=== PATIENT | male | born 1955 | race Caucasian/White ===

== ENCOUNTER 2024-12-01 12:11 | Emergency (ER) | payer BC, MEDICAID ==
[~2024-12-01] VITALS: Ht 170.2 cm; Wt 88.0 kg
[2024-12-01 12:18] VITALS: TEMP 97.8
[2024-12-01 12:54] LABS: BASOPHILS % (AUTO) 0.5 % (0-1); EOSINOPHILS # (AUTO) 0.3 X10'3 (0-0.9); EOSINOPHILS % (AUTO) 3.8 % (0-6); HEMATOCRIT 40.2 % (42.0-52.0); HEMOGLOBIN 13.6 g/dl (14.0-17.9); LYMPHOCYTES # (AUTO) 1.5 X10'3 (1.1-4.8); LYMPHOCYTES % (AUTO) 20.9 % (21-51); MEAN CORPUSCULAR HGB CONC 33.8 g/dL (33.0-36.5); MEAN PLATELET VOLUME 7.3 FL (7.4-10.4); MONOCYTES # (AUTO) 0.8 X10'3 (0-0.9); MONOCYTES % (AUTO) 11.1 % (2-12); NEUTROPHILS # (AUTO) 4.4 X10'3 (1.8-7.7); NEUTROPHILS % (AUTO) 63.7 % (42-75); PLATELET COUNT 239 X10'3 (140-440); RED BLOOD COUNT 4.68 X10'6 (4.70-6.10)
[2024-12-01 13:08] LABS: ALANINE AMINOTRANSFERASE 35 U/L (12-78); ALBUMIN 2.8 G/DL (3.4-5.0); ALBUMIN/GLOBULIN RATIO 0.8 (1.1-1.5); ALKALINE PHOSPHATASE 73 IU/L (46-116); ANION GAP 5 (8-16); ASPARTATE AMINO TRANSFERASE 21 U/L (10-37); BILIRUBIN,TOTAL 0.4 MG/DL (0.1-1.0); BLOOD UREA NITROGEN 21 MG/DL (7-18); BUN/CREATININE RATIO 17.2 (10.0-20.0); CALCIUM 8.5 MG/DL (8.5-10.1); CHLORIDE 112 MMOL/L (99-107); CREATININE 1.22 MG/DL (0.60-1.10); GLUCOSE 107 MG/DL (70-104); POTASSIUM 3.3 MMOL/L (3.5-5.1); SODIUM 145 MMOL/L (135-145); TOTAL CARBON DIOXIDE 28.1 MMOL/L (24-32); TOTAL PROTEIN 6.3 G/DL (6.4-8.2); eCRCL 53 ML/MIN; eGFR 59 ML/MIN
[2024-12-01 13:16] LABS: PRO BRAIN NATRIURETIC PEPTIDE 2220 PG/ML (0-125)
[2024-12-01 16:06] VITALS: BP 148/84; PULSE 82; RESP 16; O2SAT 98
[2024-12-01] MEDS: furosemide 20MG tablet PO ONE (16:10)
[2024-12-01] MEDS ORDERED: FURO-149 PO (16:21)
[2024-12-01] MEDS ORDERED: POTA-192 PO (16:23)
== END 2024-12-01 16:41 | disposition home or self-care (01) ==
LOC: ER 12:11
DX: R60.0 Localized edema (principal); I11.0 Hypertensive heart disease with heart failure; I50.9 Heart failure, unspecified
CPT/HCPCS: 36415; 71045; 80053; 83880; 84484; 85025; 93005; 99285

== ENCOUNTER 2024-12-15 13:27 | Emergency (ER) | payer BC, MEDICAID ==
[~2024-12-15] VITALS: Ht 175.3 cm; Wt 81.0 kg
[~2024-12-15 13:27] MED LIST: FURO-149 PO
[2024-12-15 14:04] VITALS: TEMP 97.4
[2024-12-15 14:15] LABS: BILIRUBIN,URINE NEGATIVE (Neg); CLARITY,URINE SLIGHTLY CLOUDY (Clear); COLOR,URINE YELLOW (Yellow); GLUCOSE, URINE NEGATIVE (Neg); KETONES,URINE NEGATIVE (Neg); LEUKOCYTE ESTERASE ,URINE MODERATE (Neg); NITRITES, URINE POSITIVE (Neg); OCCULT BLOOD,URINE TRACE-INTACT (Neg); PROTEIN,URINE TRACE mg/dl (Neg); UROBILINOGEN,URINE 0.2 E.U/dL (0.2-1.0)
[2024-12-15 14:16] LABS: UA COLLECTION TYPE CLN CATCH MIDSTREAM
[2024-12-15 14:28] LABS: BACTERIA,URINE 3+ /HPF (Neg); RBC,URINE 0-2 /HPF (0-2); SQUAMOUS EPITHELIAL CELL,UR FEW /LPF (FEW); WBC,URINE TNTC /HPF (0-4)
[2024-12-15 14:29] LABS: AMORPHOUS URATES 3+
[2024-12-15 14:32] LABS: BASOPHILS % (AUTO) 0.6 % (0-1); EOSINOPHILS # (AUTO) 0.2 X10'3 (0-0.9); EOSINOPHILS % (AUTO) 1.8 % (0-6); HEMATOCRIT 44.6 % (42.0-52.0); HEMOGLOBIN 15.2 g/dl (14.0-17.9); LYMPHOCYTES # (AUTO) 1.9 X10'3 (1.1-4.8); LYMPHOCYTES % (AUTO) 22.8 % (21-51); MEAN CORPUSCULAR HEMOGLOBIN 28.9 PG (27.0-31.0); MEAN CORPUSCULAR VOLUME 84.9 FL (78-98); MEAN PLATELET VOLUME 6.6 FL (7.4-10.4); MONOCYTES # (AUTO) 0.8 X10'3 (0-0.9); MONOCYTES % (AUTO) 8.9 % (2-12); NEUTROPHILS # (AUTO) 5.6 X10'3 (1.8-7.7); NEUTROPHILS % (AUTO) 65.9 % (42-75); PLATELET COUNT 261 X10'3 (140-440); RED BLOOD COUNT 5.26 X10'6 (4.70-6.10); RED CELL DISTRIBUTION WIDTH 15.1 % (11.5-14.5); WHITE BLOOD COUNT 8.5 X10'3 (4.5-11.0)
[2024-12-15 14:53] LABS: ALANINE AMINOTRANSFERASE 35 U/L (12-78); ALBUMIN 3.4 G/DL (3.4-5.0); ALBUMIN/GLOBULIN RATIO 0.9 (1.1-1.5); ALKALINE PHOSPHATASE 94 IU/L (46-116); ANION GAP 9 (8-16); ASPARTATE AMINO TRANSFERASE 13 U/L (10-37); BILIRUBIN,TOTAL 0.5 MG/DL (0.1-1.0); BLOOD UREA NITROGEN 19 MG/DL (7-18); BUN/CREATININE RATIO 15.3 (10.0-20.0); CALCIUM 8.9 MG/DL (8.5-10.1); CHLORIDE 109 MMOL/L (99-107); CREATININE 1.24 MG/DL (0.60-1.10); GLUCOSE 83 MG/DL (70-104); LIPASE 55 U/L (16-77); POTASSIUM 4.3 MMOL/L (3.5-5.1); SODIUM 142 MMOL/L (135-145); TOTAL CARBON DIOXIDE 24.1 MMOL/L (24-32); TOTAL PROTEIN 7.2 G/DL (6.4-8.2); eCRCL 56 ML/MIN; eGFR 58 ML/MIN
[2024-12-15] MEDS ORDERED: CEPH-585 PO (15:06)
[2024-12-15] MEDS: CefTRIAXone 1000mg IM Kit (w/lidocaine diluent) IM ONE (15:59)
[2024-12-15 16:18] VITALS: BP 170/86; PULSE 61; RESP 12; O2SAT 100
== END 2024-12-15 16:20 | disposition home or self-care (01) ==
LOC: ER 13:28
DX: N39.0 Urinary tract infection, site not specified (principal)
CPT/HCPCS: 36415; 80053; 81001; 83690; 85025; 87088; 96372; 99283; J0696

== ENCOUNTER 2024-12-21 10:56 | Emergency (ER) | payer BC, MEDICAID ==
[~2024-12-21] VITALS: Ht 175.3 cm; Wt 81.2 kg
[~2024-12-21 10:56] MED LIST changes: +CEPH-585 PO
[2024-12-21 11:09] VITALS: TEMP 97.8
[2024-12-21 12:41] LABS: BASOPHILS # (AUTO) 0.1 X10'3 (0-0.2); BASOPHILS % (AUTO) 0.7 % (0-1); EOSINOPHILS # (AUTO) 0.2 X10'3 (0-0.9); EOSINOPHILS % (AUTO) 2.3 % (0-6); HEMOGLOBIN 15.5 g/dl (14.0-17.9); LYMPHOCYTES # (AUTO) 1.8 X10'3 (1.1-4.8); LYMPHOCYTES % (AUTO) 24.7 % (21-51); MEAN CORPUSCULAR HEMOGLOBIN 27.9 PG (27.0-31.0); MEAN CORPUSCULAR HGB CONC 32.9 g/dL (33.0-36.5); MEAN CORPUSCULAR VOLUME 84.9 FL (78-98); MONOCYTES # (AUTO) 0.7 X10'3 (0-0.9); MONOCYTES % (AUTO) 8.8 % (2-12); NEUTROPHILS # (AUTO) 4.7 X10'3 (1.8-7.7); NEUTROPHILS % (AUTO) 63.5 % (42-75); PLATELET COUNT 223 X10'3 (140-440); RED BLOOD COUNT 5.54 X10'6 (4.70-6.10); RED CELL DISTRIBUTION WIDTH 15.4 % (11.5-14.5); WHITE BLOOD COUNT 7.4 X10'3 (4.5-11.0)
[2024-12-21 12:48] LABS: ALBUMIN 3.5 G/DL (3.4-5.0); ANION GAP 5 (8-16); BLOOD UREA NITROGEN 19 MG/DL (7-18); BUN/CREATININE RATIO 14.7 (10.0-20.0); CHLORIDE 107 MMOL/L (99-107); CREATININE 1.29 MG/DL (0.60-1.10); GLUCOSE 93 MG/DL (70-104); POTASSIUM 4.3 MMOL/L (3.5-5.1); SODIUM 141 MMOL/L (135-145); TOTAL CARBON DIOXIDE 28.9 MMOL/L (24-32); eCRCL 54 ML/MIN; eGFR 55 ML/MIN
[2024-12-21] MEDS: metoclopramide 5 mg/ml inj IV ONE (15:07)
[2024-12-21] MEDS: diphenhydrAMINE 50 mg/ml inj IV ONE (15:11)
[2024-12-21] MEDS: ketorolac trometh 15mg/ml vial 15 MG/ML ML IV ONE (15:11)
[2024-12-21] MEDS: normal saline 1000ml 1,000 ML IV ONE (15:15)
[2024-12-21] MEDS ORDERED: BUTA-245 PO (15:35)
[2024-12-21 16:02] VITALS: BP 158/86; PULSE 68; RESP 18; O2SAT 96
== END 2024-12-21 16:09 | disposition home or self-care (01) ==
LOC: ER 10:56
DX: R51.9 Headache, unspecified (principal)
CPT/HCPCS: 36415; 70450; 80048; 85025; 96361; 96374; 96375; 99285; J1200; J1885; J2765; J7030

== ENCOUNTER 2025-02-20 08:38 | Emergency (ER) | payer BC, MEDICAID ==
[~2025-02-20] VITALS: Ht 175.3 cm; Wt 86.0 kg
[~2025-02-20 08:38] MED LIST changes: +BUTA-245 PO; -CEPH-585 PO
--- NOTE | 2025-02-20 08:47 | ELECTROCARDIOGRAPH REPORT ---
[facility] Test Date: 2025-02-20 Test Time: 08:45:48 Pat Name: LAWSON MENDEZ Department: [facility] Patient ID: [facility]-[id number] Room: Gender: M Treating Engineer Helper: : 1955 Requested By: EDGAR CRANE Order Number: [id number] Reading MD: Dr. Edgar Crane Measurements Intervals [place] Rate: 65 P: 23 [place]: 181 QRS: -49 QRSD: 125 T: -5 QT: 454 QTc: 473 Interpretive Statements Sinus rhythm Left bundle branch block Electronically Signed On 02-20-2025 8:51:[address] Edgar Crane Please click the below link to view image of tracing.
--- NOTE | 2025-02-20 09:07 | Physician Documentation ---
History of Present Illness ~ Chief Complaint: Dizziness Stated Complaint: DIZZINESS Time Seen by MD: 08:53 OK to notify your PCP?: Yes Primary Medical Doctor: jef Source: patient, RN/MD, EMS, RN notes reviewed, EMS notes reviewed, old records Mode of Arrival: EMS Exam Limitations: no limitations HPI This patient has a history of vertigo prescribed meclizine has not had a CAT scan which is pending on the outpatient basis. The patient also has a history of high blood pressure. He is doing well slept well no complaints. When he woke up he went to get up and had one of the worse vertigo attacks that he has had up-to-date. Spinning nauseated no balance took a few steps fell down and landed on the right side of his body. He denies any head trauma no blood thinners no loss of consciousness. The patient states after he hit the ground he seemed to have a quick recovery. He denies any weakness or numbness of his upper extremities. He called 911 and had to crawl to the phone. The patient did not have a chance to take his morning medications which includes blood pressure medications. He is able to move his extremities. He is feeling much better. He has no other complaints. Denies shortness of breath chest pain fevers chills Of note patient has been on doxycycline for three months and three rounds of antibiotics. Patient is not sure why he is having so many urinary infections. Patient denies any weight loss or severe pain. Medication Reconciliation Allergies: Coded Allergies: No Known Allergies (Unverified , 12/01/24) Scheduled Doxycycline Hyclate (Doxycycline Hyclate), 1 CAP PO Q12H Furosemide (Lasix), 1 TAB PO DAILY Meclizine HCl (Meclizine HCl), 1 TAB PO Q8H Scheduled PRN Butalb/Acetaminophen/Caffeine (Fioricet Tab), 1 TAB PO Q6H PRN for headache Past Medical History Past Medical History: Vertigo, Hypertension Past Surgical History: orthopedic surgeries Smoking Status: Never smoker Alcohol Use: None Drug Use: none Review of Systems All Other Systems at this time: Reviewed and Negative ROS As stated above in the HPI, otherwise all systems are reviewed and negative. Physical Exam Vital Signs: RN Vital Signs have been reviewed: Yes, Temperature: 97.7, Source: Oral, Heart Rate: 72, Respiratory Rate: 18, BP: 154/138, Pulse Oximetry: 99, Weight: 86.000 Oxygen Flow Rate: 0 Physical Exam General: The patient is well developed, well nourished, nontoxic appearing and is in no acute distress. Skin: [place], warm and dry with no rashes. HEENT: Head was normocephalic and atraumatic. Eyes - pupils equal, round, reactive to light and accommodation. Extraocular movements were intact. Positive horizontal nystagmus Conjunctivae were nonicteric. Ears - bilateral tympanic membranes were normal. The mouth and oropharynx were clear with moist mucous membranes. EARS: Bilateral tympanic membranes are within normal limits. Increased cerumen but no impaction bilaterally Neck: Supple and nontender. There was no jugular venous distention, full range of motion Chest: Clear to auscultation bilaterally without wheezes, rales or rhonchi. No accessory muscle use. No dullness to percussion. Heart: Rate regular and rhythmic. S1, S2. No murmurs. Palpation of the chest wall was normal. No rubs or thrills. Abdomen: Soft, nontender and nondistended. Positive bowel sounds. No guarding or rebound. No hepatosplenomegaly or palpable masses. Extremities: No cyanosis, clubbing or edema. The patient moves all extremities. Pulses were equal and symmetric. All joints on the right side have full range of motion no signs of contusions ecchymosis or bruising. Neurologic: Cranial nerves II-XII were intact. Sensation was intact to light touch throughout. Motor strength was 5/5 in all four extremities. Deep tendon reflexes were intact in both upper and lower extremities. Positive nystagmus Psychologic: The patient was oriented to person, place and time. The patient demonstrated appropriate judgement and insight. Progress Results/Orders Reviewed/noted all lab results: Yes Results/Orders Orders - CHASE LOPEZ MD Electrocardiogram (02/20/25 08:42) Ct Head (02/20/25 08:59) Ct Abdomen Pelvis (02/20/25 09:14) Cult Urine + Embudo Ct (02/20/25 11:34) Gait Test (02/20/25 12:42) Completed Orders - CHASE LOPEZ MD Electrocardiogram (02/20/25 08:42) Meclizine Tablets (Antivert Tablet) (02/20/25 08:55) Ct Head (02/20/25 08:59) Cbc/Diff (02/20/25 09:14) Ct Abdomen Pelvis (02/20/25 09:14) BMP (02/20/25 09:14) Ua W/Microscopic, Cult If Ind (02/20/25 11:02) Medications Received in ER Medications (Trade) Dose Ordered Sig/Keshia Route PRN Reason Start Time Stop Time Status Last Admin Dose Admin (Antivert tablet) 25 mg ONCE ONCE PO 02/20/25 08:55 02/20/25 08:56 DC 02/20/25 10:05 25 MG Vital Signs 02/20/25 02/20/25 02/20/25 02/20/25 08:45 09:40 11:55 13:29 Temp 97.7 97.7 Pulse 72 72 72 Resp 18 12 16 B/P (MAP) 154/138 172/103 (126) 172/103 Pulse Ox 99 97 97 O2 Flow Rate 0 0 Laboratory Tests Test 02/20/25 10:05 02/20/25 11:02 White Blood Count 8.5 Red Blood Count 5.24 Hemoglobin 15.1 Hematocrit 43.8 Mean Corpuscular Volume 83.7 Mean Corpuscular Hemoglobin 28.8 Mean Corpuscular Hemoglobin Concent 34.4 Red Cell Distribution Width 14.5 Platelet Count 226 Mean Platelet Volume 6.8 L Neutrophils (%) (Auto) 78.7 H Lymphocytes (%) (Auto) 12.9 L Monocytes (%) (Auto) 7.1 Eosinophils (%) (Auto) 0.8 Basophils (%) (Auto) 0.5 Neutrophils # (Auto) 6.7 Lymphocytes # (Auto) 1.1 Monocytes # (Auto) 0.6 Eosinophils # (Auto) 0.1 Basophils # (Auto) 0.0 CBC Comment Sodium Level 146 H Potassium Level 4.3 Chloride Level 111 H Carbon Dioxide Level 27.8 Anion Gap 7 L Blood Urea Nitrogen 18 Creatinine 1.43 H Estimated GFR/1.73 m2 49 BUN/Creatinine Ratio 12.6 Glucose Level 98 Calcium Level 9.1 Albumin 3.4 Chemistry Comments Urine Specimen Description Cln catch midstream Urine Color Yellow Urine Clarity Clear Urine pH 6.0 Urine Specific [place] 1.025 Urine Protein Negative Urine Glucose (UA) Negative Urine Ketones Negative Urine Occult Blood Moderate H Urine Nitrite Negative Urine Bilirubin Negative Urine Urobilinogen 0.2 Urine Leukocyte Esterase Small H Urine RBC 3-10 Urine WBC 20-30 H Urine Squamous Epithelial Cells Few Urine Bacteria Few Urine Mucus Few Urine Culture Indicated Indicated Volume Urine Centrifuged 10 ml Urine Comment Microbiology Date/Time Source Procedure Growth Status 02/20/25 11:34 Urine Clean Catch Midstream Urine Culture - Preliminary Culture received. Resulted Re-Evaluation Re-Evaluation : Re-Evaluation: Improved Progress Patient was seen and examined. Patient was given reassurance. Patient has a known history of vertigo but has not been completely worked up. There was no signs of head trauma loss of consciousness not on blood thinners. However his diagnosis of vertigo is relatively new. Patient has a scheduled CAT scan ordered one was obtained. Patient was given meclizine. Blood pressure is elevated patient has home medications that were not taken since he called 911 after waking up. Patient has vertigo symptoms dramatically improved after falling. However they are still present. Patient's exam was reassuring. Patient received additional doses of meclizine prior to discharge ambulated wit hout any difficulty. Patient's CBC he is within normal limits with a WBC of 8.5 she goes against any possible infectious etiologies. Chemistry shows some mild dehydration with a sodium of 146 and creatinine elevated at 1.43 otherwise potassium was 4.3 and within normal limits. Urinalysis did show leukocyte esterase small with 20 of the 30 WBCs consistent with a UTI. Patient has chronic UTIs but on multiple medications without any resolution. He has an appointment with urologist there was no history of any fistulas. Patient did have some atrophic kidneys sepsis and bilateral nonobstructive kidney stones were visualized. Recurrent UTI most likely related to the kidney stones. Patient was then discharged home. Patient was almost out of his doxycycline and was given another round of antibiotics. Continuous outside property agent interpretation shows normal sinus rhythm heart rate 70s, no ectopy, normal, my interpretation. Pulse oximetry monitor interpretation shows normal oxygenation at 99% room air, normal, my interpretation. EKG/XRAY/CT/US/VASC/MRI EKG : Additional Comment [facility] Test Date: 2025-02-20 Test Time: 08:45:48 Pat Name: LAWSON BRAMBILAMAGDY Department: [facility]- Patient ID: [facility]-[id number] Room: Gender: M Boiler/Chiller Technician: : 1955 Requested By: CHASE LOPEZ Order Number: [id number] Isidro MD: Dr. Chase Lopez Measurements Intervals [place] Rate: 65 P: 23 [place]: 181 QRS: -49 QRSD: 125 T: -5 QT: 454 QTc: 473 Interpretive Statements Sinus rhythm Left bundle branch block Electronically Signed On 02-20-2025 8:51:[address] Chase Lopez Please click the below link to view image of tracing. EKG Date and Time:02/20/25 0845 Electronically Signed by: CHASE LOPEZ MD Date and Time: 02/20/[address] #1: Impression [facility] Test Date: 2025-02-19 Test Time: 17:48:46 Pat Name: RHIANNA RAJPUT Department: [facility] Patient ID: [facility]-[id number] Room: Gender: Boiler/Chiller Technician: : 1961-08-23 Requested By: CHASE LOPEZ Order Number: [id number] Isidro MD: Dr. Chase Lopez Measurements Intervals [place] Rate: 81 P: -1 [place]: 147 QRS: 43 QRSD: 103 T: 37 QT: 391 QTc: 454 Interpretive Statements Sinus rhythm Electronically Signed On 02-19-2025 17:53:[address] Chase Lopez Please click the below link to view image of tracing. EKG Date and Time:02/19/25 1748 Electronically Signed by: CHASE LOPEZ MD Date and Time: 02/19/[address] #2: Impression CT CT HEAD INDICATION: aloc EXAM DATE: 02/20/2025 09:19 AM COMPARISON: CT CT HEAD on DOS: 12/21/24 RADIATION DOSE: CTDIvol: 68 mGy, DLP: 1247 mGy*cm PROCEDURE: CT scans of the head were obtained from the vertex to the skull base. Sagittal and coronal reconstructions were provided. All CT scans at this medical facility are performed using dose modulation techniques as appropriate to a performed exam including the following: Automated exposure control was utilized; adjustment of the MA and/or KV according to patient size; and use of iterative reconstruction technique. FINDINGS: There is sulcal and ventricular prominence. The brainshows normal morphology and greenberg-white matter differentiation, without intracranial hemorrhage, extra-axial fluid collection, mass effect or acute large vessel infarct. The ventricles are normal in size. The basal cisterns are patent. The skull and visible facial bones are intact. The paranasal sinuses, mastoid air cells and middle ear cavities are well-aerated. The soft tissues of the scalp are unremarkable. IMPRESSION: No acute intracranial abnormality. Electronically Signed by:KAUSHAL SOSA MD Date & Time: 02/20/25944 Medical Decision Making Additional info obtained from: old records Differential Dx:Considerations: Include: anemia, CVA, dehydration, electrolyte imbalance, hypoglycemia, hypotension, hypovolemia, labyrinthitis, Meniere's disease, myasathenia gravis, myocardial infarction, pulmonary embolus, renal failure, TIA, VBI, vertigo central, vertigo peripheral Departure Time of Disposition: 12:43 Disposition: 01 HOME / SELF CARE / HOMELESS Impression: Primary Impression: Vertigo Additional Impression: Chronic UTI Condition: Stable Discharge Instructions: Vertigo Additional Instructions: Please follow up with urology, it is urgent you do not miss that appointment. Return to the emergency department for high fevers or back pain. Referrals: NO PRIMARY CARE PROVIDER (PCP) Prescriptions Meclizine HCl (Meclizine HCl) 25 Mg Tablet 1 TAB PO Q8H for 30 Days, #45 TAB Prov: CHASE LOPEZ MD 02/20/25 Doxycycline Hyclate (Doxycycline Hyclate) 100 Mg Capsule 1 CAP PO Q12H for 10 Days, #20 CAP Prov: CHASE LOPEZ MD 02/20/25 Education Educated: Patient Educated regarding: diagnosis, need for follow up Signature Scribe Signature: No scribed Scribed for Chase Lopez MD by Ivana Zuleta . 02/20/25 10:06 (Progress) Attestation: The note accurately reflects work and decisions made by me.Chase Lopez MD 02/20/25 09:11 CHASE LOPEZ MD Feb 20, 2025 09:06 IVANA PICKETT Feb 20, 2025 10:07
--- NOTE | 2025-02-20 09:48 | RADIOLOGY REPORT ---
CT CT HEAD INDICATION: aloc EXAM DATE: 02/20/2025 09:19 AM COMPARISON: CT CT HEAD on DOS: 12/21/24 RADIATION DOSE: CTDIvol: 68 mGy, DLP: 1247 mGy*cm PROCEDURE: CT scans of the head were obtained from the vertex to the skull base. Sagittal and coronal reconstructions were provided. All CT scans at this medical facility are performed using dose modulation techniques as appropriate t o a performed exam including the following: Automated exposure control was utilized; adjustment of th e MA and/or KV according to patient size; and use of iterative reconstruction technique. FINDINGS: There is sulcal and ventricular prominence. The brainshows normal morphology and greenberg-whi te matter differentiation, without intracranial hemorrhage, extra-axial fluid collection, mass effect or acute large vessel infarct. The ventricles are normal in size. The basal cisterns are patent. The skull and visible facial bones are intact. The paranasal sinuses, mastoid air cells and middle ear c avities are well-aerated. The soft tissues of the scalp are unremarkable. IMPRESSION: No acute intracranial abnormality.
--- NOTE | 2025-02-20 09:51 | RADIOLOGY REPORT ---
CT CT ABDOMEN PELVIS INDICATION: ABD PAIN EXAM DATE: 02/20/2025 09:21 AM COMPARISON: None RADIATION DOSE: CTDIvol: 22 mGy, DLP: 1089 mGy*cm PROCEDURE: Helical CT images were obtained of the abdomen and pelvis without IV contrast Sagittal and coronal reconstructions are provided. ORAL CONTRAST: None. ADDITIONAL IMAGES / REFORMATS: None All C T scans at this medical facility are performed using dose modulation techniques as appropriate to a p erformed exam including the following: Automated exposure control was utilized; adjustment of the MA and/or KV according to patient size; and use of iterative reconstruction technique. FINDINGS: LUNG BASE: Normal. LIVER: Normal. GALLBLADDER AND BILIARY TREE: No calcified gallstones. Normal caliber wall. No intra- or extrahepatic biliary ductal dilation. PANCREAS: Normal. SPLEEN: Normal. BOWEL: No small bowel dilatation is seen. The appendix is normal. ADRENALS: 1.1cm left adrenal nodule. KIDNEYS AND URETER: The kidneys appear atrophic bilaterally with multiple small cystic lesions of brian rachana density. Bilateral nonobstructive kidney stones are visualized. BLADDER: Multiple bladder stones are seen. REPRODUCTIVE ORGANS: Normal. LYMPH NODES:No lymphadenopathy. PERITONEUM: No ascites or free air. No other fluid collection. VESSELS: Scattered atherosclerotic calcifications are noted. RETROPERITONEUM: Normal. ABDOMINAL WALL: Normal. BONES: Scattered osseous degenerative changes are noted. S shaped curvature of the thoracolumbar spin e. IMPRESSION: No acute intraabdominal abnormality. Kidneys appear atrophic bilaterally with multiple small cystic lesions of varying density. Bilateral nonobstructive kidney stones are visualized. Multiple bladder stones are seen. Distended urinary bladder.
[2025-02-20] MEDS: meclizine 12.5mg tablet PO ONE (10:05)
[2025-02-20 10:23] LABS: BASOPHILS % (AUTO) 0.5 % (0-1); EOSINOPHILS # (AUTO) 0.1 X10'3 (0-0.9); EOSINOPHILS % (AUTO) 0.8 % (0-6); HEMATOCRIT 43.8 % (42.0-52.0); HEMOGLOBIN 15.1 g/dl (14.0-17.9); LYMPHOCYTES # (AUTO) 1.1 X10'3 (1.1-4.8); LYMPHOCYTES % (AUTO) 12.9 % (21-51); MEAN CORPUSCULAR HEMOGLOBIN 28.8 PG (27.0-31.0); MEAN CORPUSCULAR HGB CONC 34.4 g/dL (33.0-36.5); MEAN CORPUSCULAR VOLUME 83.7 FL (78-98); MEAN PLATELET VOLUME 6.8 FL (7.4-10.4); MONOCYTES # (AUTO) 0.6 X10'3 (0-0.9); MONOCYTES % (AUTO) 7.1 % (2-12); NEUTROPHILS # (AUTO) 6.7 X10'3 (1.8-7.7); NEUTROPHILS % (AUTO) 78.7 % (42-75); PLATELET COUNT 226 X10'3 (140-440); RED BLOOD COUNT 5.24 X10'6 (4.70-6.10); RED CELL DISTRIBUTION WIDTH 14.5 % (11.5-14.5); WHITE BLOOD COUNT 8.5 X10'3 (4.5-11.0)
[2025-02-20 10:30] LABS: ALBUMIN 3.4 G/DL (3.4-5.0); ANION GAP 7 (8-16); BLOOD UREA NITROGEN 18 MG/DL (7-18); BUN/CREATININE RATIO 12.6 (10.0-20.0); CALCIUM 9.1 MG/DL (8.5-10.1); CHLORIDE 111 MMOL/L (99-107); CREATININE 1.43 MG/DL (0.60-1.10); GLUCOSE 98 MG/DL (70-104); POTASSIUM 4.3 MMOL/L (3.5-5.1); SODIUM 146 MMOL/L (135-145); TOTAL CARBON DIOXIDE 27.8 MMOL/L (24-32); eCRCL 49 ML/MIN; eGFR 49 ML/MIN
[2025-02-20 11:23] LABS: BILIRUBIN,URINE NEGATIVE (Neg); CLARITY,URINE CLEAR (Clear); COLOR,URINE YELLOW (Yellow); GLUCOSE, URINE NEGATIVE (Neg); KETONES,URINE NEGATIVE (Neg); LEUKOCYTE ESTERASE ,URINE SMALL (Neg); NITRITES, URINE NEGATIVE (Neg); OCCULT BLOOD,URINE MODERATE (Neg); PROTEIN,URINE NEGATIVE (Neg); UROBILINOGEN,URINE 0.2 E.U/dL (0.2-1.0)
[2025-02-20 11:25] LABS: UA COLLECTION TYPE CLN CATCH MIDSTREAM
[2025-02-20 11:34] LABS: BACTERIA,URINE FEW /HPF (Neg); MUCUS STRANDS FEW /LPF (Neg); SQUAMOUS EPITHELIAL CELL,UR FEW /LPF (FEW); WBC,URINE 20-30 /HPF (0-4)
[2025-02-20] MEDS ORDERED: MECL-302 PO (12:41)
[2025-02-20] MEDS ORDERED: DOXY-1 PO (12:41)
[2025-02-20 13:29] VITALS: BP 172/103; PULSE 72; RESP 16; TEMP 97.7; O2SAT 97
== END 2025-02-20 13:30 | disposition home or self-care (01) ==
LOC: ER 08:39
DX: R42 Dizziness and giddiness (principal); I10 Essential (primary) hypertension; N39.0 Urinary tract infection, site not specified; Z79.899 Other long term (current) drug therapy
CPT/HCPCS: 36415; 70450; 74176; 80048; 81001; 85025; 87088; 93005; 99284; J8597

== ENCOUNTER 2025-07-08 09:19 | Emergency (ER) | payer BC, MEDICAID ==
[~2025-07-08] VITALS: Ht 172.7 cm; Wt 85.5 kg
[~2025-07-08 09:19] MED LIST changes: +MECL-302 PO
[2025-07-08 09:35] VITALS: TEMP 96.9
[2025-07-08 10:17] LABS: MEAN PLATELET VOLUME 7.0 FL (7.4-10.4); RED CELL DISTRIBUTION WIDTH 14.8 % (11.5-14.5)
[2025-07-08 10:33] LABS: CREATININE 1.55 MG/DL (0.60-1.10); TOTAL CARBON DIOXIDE 26.6 MMOL/L (24-32); eCRCL 44 ML/MIN; eGFR 45 ML/MIN
--- NOTE | 2025-07-08 10:41 | RADIOLOGY REPORT ---
CLINICAL HISTORY: headache TECHNIQUE: Helical imaging carried out from skull base to vertex without intravenous contrast. This exam was performed according to our departmental dose optimization program. Up-to-date CT equipment and radiation dose reduction techniques are utilized as appropriate. CTDIVol: 65.5 mGy DLP: 1235.3 mGy-cm WID: COMPARISON: CT CT HEAD on DOS: 02/20/25 FINDINGS: Generalized cerebral volume loss with concordant prominence of the subarachnoid spaces and ventricles. There is moderate to severe patchy low attenuation in the cerebral white matter consistent with nonspecific white matter disease. Chronic appearing lacunar infarcts in the bilateral thalami and basal ganglia. The ventricles and subarachnoid spaces are normal in size and configuration. There is no midline shift or mass effect. The greenberg white matter interfaces are maintained. The basal cisterns are patent. There is no evidence of acute intracranial hemorrhage or extra-axial fluid collection. The visualized paranasal sinuses are well-aerated. Small bilateral mastoid air cell effusions. IMPRESSION: 1. No acute intracranial abnormality. 2. Generalized cerebral volume loss and moderate to severe chronic microvascular ischemic change. 3. Chronic appearing lacunar infarcts in the bilateral thalami and basal ganglia.
--- NOTE | 2025-07-08 10:47 | Physician Documentation ---
History of Present Illness ~ Chief Complaint: Headache Stated Complaint: HEADACHE Time Seen by MD: 09:40 Primary Medical Doctor: jef Mode of Arrival: POV HPI 69 year old male with history of stroke and hypertension reports several days of intermittent R-sided headache that is sharp, throbbing. Denies fevers, N/V/D, new neurologic deficits, diarrhea and visual disturbance. Is not on blood thinners. Noted to be hypertensive at home which is unusual for him. Medication Reconciliation Allergies: Coded Allergies: No Known Allergies (Unverified , 07/08/25) Scheduled Furosemide (Lasix), 1 TAB PO DAILY Meclizine HCl (Meclizine HCl), 1 TAB PO Q8H Scheduled PRN Butalb/Acetaminophen/Caffeine (Fioricet Tab), 1 TAB PO Q6H PRN for headache Past Medical History Past Medical History: Vertigo, Hypertension Past Surgical History: orthopedic surgeries Alcohol Use: None Drug Use: none Review of Systems All Other Systems at this time: Reviewed and Negative Physical Exam Vital Signs: RN Vital Signs have been reviewed: Yes, Temperature: 96.9, Source: Temporal, Heart Rate: 92, Respiratory Rate: 16, BP: 163/77, Pulse Oximetry: 98, Weight: 85.500 Oxygen Flow Rate: 0 Physical Exam HEENT: PERRL, moist oral mucosa, EOMI Pulmonary: No respiratory distress CTAB Cardiac: RRR no m/c/r MSK: no deformity Skin: w/d/i, no rash Neuro: alert, nonfocal Psych: normal affect Progress Results/Orders Results/Orders Orders - ASMITA GARDNER MD Urinalysis, Cult If Indicated (07/08/25 09:50) Ct Head (07/08/25 09:50) Completed Orders - ASMITA GARDNER MD Cbc/Diff (07/08/25 09:50) CMP (07/08/25 09:50) Ct Head (07/08/25 09:50) Vital Signs 07/08/25 07/08/25 09:35 10:11 Temp 96.9 Pulse 92 Resp 16 B/P (MAP) 163/77 Pulse Ox 98 O2 Flow Rate 0 Laboratory Tests Test 07/08/25 10:00 White Blood Count 5.3 Red Blood Count 5.06 Hemoglobin 14.6 Hematocrit 43.3 Mean Corpuscular Volume 85.6 Mean Corpuscular Hemoglobin 28.8 Mean Corpuscular Hemoglobin Concent 33.6 Red Cell Distribution Width 14.8 H Platelet Count 246 Mean Platelet Volume 7.0 L Neutrophils (%) (Auto) 59.5 Lymphocytes (%) (Auto) 25.9 Monocytes (%) (Auto) 10.1 Eosinophils (%) (Auto) 3.8 Basophils (%) (Auto) 0.7 Neutrophils # (Auto) 3.1 Lymphocytes # (Auto) 1.4 Monocytes # (Auto) 0.5 Eosinophils # (Auto) 0.2 Basophils # (Auto) 0.0 CBC Comment Sodium Level 141 Potassium Level 3.8 Chloride Level 107 Carbon Dioxide Level 26.6 Anion Gap 7 L Blood Urea Nitrogen 17 Creatinine 1.55 H Estimated GFR/1.73 m2 45 BUN/Creatinine Ratio 11.0 Glucose Level 95 Calcium Level 8.9 Total Bilirubin 0.6 Aspartate Amino Transf (AST/SGOT) 15 Alanine Aminotransferase (ALT/SGPT) 15 Alkaline Phosphatase 87 Total Protein 7.0 Albumin 3.5 Globulin 3.5 Albumin/Globulin Ratio 1.0 L Chemistry Comments EKG/XRAY/CT/US/VASC/MRI CT : Interpreted By: self CT: head With Contrast?: No Impression no mass, shift, or bleed Medical Decision Making Additional information obtaine: family, N/A Findings 69 year old male with R-sided headache. Exam benign with no red flags. CT unremarkable. Counseled, advised follow up with PCP for continued symptoms and return precautions. Differential Dx:Considerations: Include: NICHOLAS-Cluster, NICHOLAS-Migraine, NICHOLAS- Hypertensive, NICHOLAS-Muscular contraction, Carbon monoxide toxicity, Close head injuyr, CVA, Fever induced, Hemorrhage-Epidural, Hemorrhage-Intracerebral, Hemorrhage-Subarachnoid, Hemorrhage-Subdural, Meningitis, Temporal arteritis, Trigeminal neuralgia Departure Disposition: HOME / SELF CARE / HOMELESS Impression: Primary Impression: Headache Condition: Stable Discharge Instructions: Headache Referrals: NO PRIMARY CARE PROVIDER (PCP) Education Educated: Patient Educated regarding: diagnosis, treatment, prognosis, need for follow up Signature Scribe Signature: . Attestation: . ASMITA GARDNER MD Jul 08, 2025 10:47
[2025-07-08 11:21] VITALS: BP 130/71; PULSE 68; RESP 16; O2SAT 93
== END 2025-07-08 11:23 | disposition home or self-care (01) ==
LOC: ER 09:20
DX: R51.9 Headache, unspecified (principal); I10 Essential (primary) hypertension; Z86.73 Personal history of transient ischemic attack (TIA), and cerebral infarction without residual deficits; Z79.899 Other long term (current) drug therapy; Z98.890 Other specified postprocedural states
CPT/HCPCS: 36415; 70450; 80053; 85025; 99284